=== PATIENT | female | born 2000 | race Caucasian/White ===

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

== ENCOUNTER 2022-11-16 10:27 | Emergency (ER) | payer BC, SELFPAY ==
[2022-11-16 10:39] VITALS: BP 108/60; PULSE 75; RESP 18; TEMP 36.7; O2SAT 100
--- NOTE | 2022-11-16 10:57 | ED.URI ---
HPI - URI/Sore Throat General Chief Complaint: Upper Respiratory Infection Stated Complaint: . Time Seen by Provider: 11/16/22 10:33 Source: patient Mode of arrival: ambulatory Limitations: no limitations History of Present Illness HPI Narrative: 22-year-old female presents to [facility] with complaints of runny nose, sinus pressure, bilateral ear pressure, nausea, vomiting, diarrhea and fevers up to 100 since this morning. Patient denies sick contacts. Patient denies recent travel. Patient has not tried taking any [id number] medications for her symptoms. Patient is requesting work excuse. Patient denies shortness of breath, wheezing. Patient reports that she does take daily Claritin and Flonase due to a cat allergy MD elicited complaint: sore throat, rhinorrhea, nasal congestion and sinus pain Onset (ago): hour(s) (8) Exacerbating factors: nothing Relieving factors: nothing Treatments prior to arrival: none Related Data Allergies Allergy/AdvReac Type Severity Reaction Status Date / Time tree nut Allergy Severe swelling Verified 11/16/22 10:46 Review of Systems Constitutional: Constitutional: Denies chills, Denies fatigue, Reports fever(s) and Denies weakness ENT: Denies dysphagia, Denies vertigo, Denies dizziness, Denies epistaxis, Reports nasal congestion and Reports sore throat Cardiovascular: Cardiovascular: Denies chest pain Respiratory: Respiratory: Denies chest congestion, Reports cough, Denies dyspnea and Denies wheezing Gastrointestinal: Gastrointestinal: Denies diarrhea, Denies nausea and Denies vomiting Genitourinary: Genitourinary: Denies dysuria Integumentary/Breasts: Skin/Breast: Denies erythema, Denies rash and Denies skin ulcer Neurologic: Denies vertigo, Denies dizziness, Denies syncope and Denies headache(s) Allergic/Immunologic: Allergic/Immunologic: Denies wheezing PMFSH Comments At time of signature, I agree with nursing past medical, surgical, social and family history. There is no relevant family history pertinent to the presenting complaint. Exam Const: General: healthy appearing and no acute distress Nutritional Appearance: well nourished Orientation/consciousness: patient oriented x3 Limitations: no limitations HENMT: Head: normal to inspection Ears: external ears normal and TM's normal bilaterally Mouth: Yes Normal oral and palatal mucosa present, Yes lip normal and Yes moist mucous membranes Throat: posterior oropharynx normal and uvula midline Other: Mild nasal congestion noted Eyes: Conjunctivae: conjunctivae normal Neck: Neck: normal visual inspection Resp: Effort & Inspection: normal respiratory effort and not labored Auscultation: clear to auscultation bilaterally, no crackles, no rales, no rhonchi and no wheezes Cardio: Rate: regular rate Rhythm: regular rhythm Heart sounds: no murmurs Skin: General skin exam: normal color Rashes: no rashes Wounds: no wounds Neuro: General: patient oriented x3 Speech: normal speech Psych: Affect: normal affect Attitude: cooperative Course Course Level of Care: Express Care Visit Vital Signs Vital signs: Vital Signs Temperature 36.7 C 11/16/22 10:39 Pulse Rate 75 11/16/22 10:39 Respiratory Rate 18 11/16/22 10:39 Blood Pressure 108/60 11/16/22 10:39 Pulse Oximetry 100 11/16/22 10:39 Oxygen Delivery Room Air 11/16/22 10:39 Temperature 36.7 C 11/16/22 10:39 Pulse Rate 75 11/16/22 10:39 Respiratory Rate 18 11/16/22 10:39 Blood Pressure 108/60 11/16/22 10:39 Pulse Oximetry 100 11/16/22 10:39 Oxygen Delivery Room Air 11/16/22 10:39 MDM - URI/Sore Throat MDM Narrative Medical decision making narrative: Encouraged patient to continue Claritin and Flonase daily. Instructed patient that symptoms are likely viral at this time. Patient agrees to follow-up with primary care provider if symptoms not improved. Encouraged patient to proceed to the emergency room i
== END 2022-11-16 11:00 | disposition home or self-care (01) ==
PROVIDERS: Emergency Provider Nurse Practitioner Family; PCP Nurse Practitioner
DX: J06.9 Acute upper respiratory infection, unspecified (principal)
CPT/HCPCS: 87081; 87880; 99213; G0463

== ENCOUNTER 2023-02-27 11:32 | Outpatient (CLI) | payer BC, SELFPAY ==
--- NOTE | ~2023-02-27 | CT_ITS ---
CT of the Abdomen and Pelvis: Indication: Abdominal pain Technique: 2.5 mm axial scans were obtained through the abdomen and pelvis following intravenous adm inistration of 100 cc of Omnipaque 350. Dose reduction technique was used on this scan by utilizing a utomated exposure control and iterative reconstruction technique. The dose-length product (DLP) was 2 83.70 mGy-cm. COMPARISON: 11/25/2021 Findings: Scans through the lung bases are unremarkable. The liver, spleen, pancreas, gallbladder, adrenals and right kidney are within normal limits. 4 mm no nobstructing left renal stone noted. No evidence of aortic aneurysm. No lymphadenopathy. No bowel obstruction or bowel wall thickening. There is no evidence to suggest acute appendicitis. Images through the pelvis were performed. Urinary bladder unremarkable. No adnexal mass evident. No a scites. Impression: No acute abnormality seen. 4 mm nonobstructing left renal stone. Reviewed, dictated and finalized at [facility]. Impression: No acute abnormality seen. 4 mm nonobstructing left renal stone.
== END 2023-02-27 11:33 ==
PROVIDERS: PCP Nurse Practitioner; Visit Provider Nurse Practitioner
DX: N20.0 Calculus of kidney (principal)
CPT/HCPCS: 74177; Q9967